=== PATIENT | male | born 1985 | race Two or more races ===

== ENCOUNTER 2017-03-10 06:44 | Emergency (ER) | payer SELFPAY ==
[~2017-03-10] VITALS: Ht 188 cm; Wt 59.0 kg
[2017-03-10 06:43] VITALS: BP 109/84
[2017-03-10] MEDS ORDERED: Morphine Sulfate 4mg/ml Inj IVP ONE (07:45)
[2017-03-10 08:00] VITALS: BP 133/87
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
[2017-03-10 08:32] LABS: EOSINOPHILS % (AUTO) 0.9 % (0.0-3.0); LYMPHOCYTES % (AUTO) 19.7 % (20.0-45.0); MEAN CORPUSCULAR HEMOGLOBIN 32.1 PG (27.0-31.0); MEAN CORPUSCULAR HGB CONC 33.2 G/DL (32.0-36.0); MEAN CORPUSCULAR VOLUME 97 FL (80-99); MEAN PLATELET VOLUME 8.2 FL (6.5-10.1); MONOCYTES % (AUTO) 9.4 % (1.0-10.0); PLATELET COUNT 254 K/UL (150-450); PROTHROMBIN TIME 9.9 SEC (9.30-11.50); RED BLOOD COUNT 4.83 M/UL (4.70-6.10); RED CELL DISTRIBUTION WIDTH 12.2 % (11.6-14.8); WHITE BLOOD COUNT 7.7 K/UL (4.8-10.8)
[2017-03-10 09:09] LABS: ANION GAP 19 (5-15); CALCIUM 10.2 mg/dL (8.6-10.2); CARBON DIOXIDE 24 mEQ/L (20-30); CHLORIDE 92 mEQ/L (98-107); CREATININE 0.8 mg/dL (0.7-1.2); GLOMERULAR FILTRATION RATE > 60 mL/min (>60); HEMOLYSIS 68; POTASSIUM 4.3 mEQ/L (3.4-4.9); SODIUM 135 mEQ/L (135-145)
--- NOTE | 2017-03-10 10:13 | Diagnostic Imaging Report ---
Indications: PAIN Technique: Two views of the right femur Comparison: None Findings: No acute fractures. No dislocations. Joint spaces are preserved. Impression: Negative
[2017-03-10 10:51] VITALS: BP 113/78
--- NOTE | 2017-03-10 11:02 | Diagnostic Imaging Report ---
Indication: PAIN, status post fall Technique: One view of the pelvis Comparison: Findings: No acute fractures. No dislocations. Joint spaces are preserved Impression: Negative
--- NOTE | 2017-03-10 11:02 | Diagnostic Imaging Report ---
Indications: PAIN Technique: Two views of the left femur Comparison: None Findings: No acute fractures. No dislocations. The joint spaces are preserved Impression: Negative
[2017-03-10] MEDS ORDERED: IBUPROFEN600 MG ORAL (13:41)
[2017-03-10 14:30] VITALS: BP 113/78
== END 2017-03-10 14:30 | disposition home or self-care (01) ==
LOC: EDBD 06:44 → EMR 07:34
DX: S80.12XA Contusion of left lower leg, initial encounter (principal); S76.112A Strain of left quadriceps muscle, fascia and tendon, initial encounter; V19.3XXA Pedal cyclist (driver) (passenger) injured in unspecified nontraffic accident, initial encounter; Y93.9 Activity, unspecified; Y92.9 Unspecified place or not applicable; E11.9 Type 2 diabetes mellitus without complications
CPT/HCPCS: 29530; 36415; 72170; 73552; 80048; 82962; 85025; 85610; 85730; 96374; 96375; 99284; J2270; J2405